=== PATIENT | female | born 1970 | race Caucasian/White ===

== ENCOUNTER 2018-02-27 21:23 | Emergency (ER) | payer OTHER ==
[2018-02-27] MEDS ORDERED: MAG HYDROX/AL HYDROX/SIMETH 30 ML UNIT-DOSE CUP PO ONE (21:39)
[2018-02-27] MEDS ORDERED: LIDOCAINE VISCOUS 2% ORAL/TOP 20 ML UNIT-DOSE CUP MM ONE (21:39)
--- NOTE | 2018-02-27 21:40 | PDOC ---
Rapid Medical Evaluation Chief Complaint: Pain Time Seen by Provider: 02/27/18 21:36 Medical Evaluation: Allergies Allergy/AdvReac Type Severity Reaction Status Date / Time No Known Allergies Allergy Verified 02/08/16 17:46 02/27/18 21:37 47 year old diagnosed with gastritis on protonix s/p burning sensation up the abdomen to chest pain. CTAP done today outpatient today. Dr. Cooley today PE: patient alert ox 3 A: gastritis? P: maalox/ lidocaine patient to the Er for further management of care Discharge Disposition - Diagnosis Gastritis Qualifiers: Gastritis type: unspecified gastritis Chronicity: acute Gastritis bleeding: without bleeding Qualified Code(s): K29.00 - Acute gastritis without bleeding - Referrals Referrals: Hortencia Lees MD [Primary Care Provider] - - Patient Instructions - Post Discharge Activity
[2018-02-27 21:43] VITALS: TEMP 98.1; BMI 30.2
--- NOTE | 2018-02-27 22:50 | PDOC ---
History of Present Illness - General Chief Complaint: Pain Stated Complaint: ABD PAIN Time Seen by Provider: 02/27/18 21:36 History Source: Patient Exam Limitations: No Limitations - History of Present Illness Initial Comments: 02/27/18 22:46 Pt is a 47yo f with PMH of HTN, GERD, mild gastritis, IBS presenting to ED with complaints of epigastric burning sensation which has been going on for 2 days. She denies epigastric pain. She feels the burning sensation in the epigastrium and in the back. She had similar symptoms a few weeks ago but they had resolved. She had an endoscopy done 2 weeks ago which showed mild gastritis. CT was done today which showed no acute pathology, fatty liver and left renal cyst , normal appendix, mild splenomegaly. She denies taking nsaids, iron pills, coffee, fried foods, sodas. She denies nausea, vomiting, abdominal pain, diarrhea, constipation, blood in stool, tarry stools (she said her stools were dark before from the iron pills). PMD: [facility] GI: Lantin PMH: see hpi PSH: cholecystectomy Meds: protonix, losartan hctz Social: denies Allergies: nkda 02/27/18 22:51 Past History - Past Medical History Allergies/Adverse Reactions: Allergies Allergy/AdvReac Type Severity Reaction Status Date / Time No Known Allergies Allergy Verified 02/27/18 21:38 Home Medications: Ambulatory Orders Losartan-Hctz 50-12.5 mg Tab 50 PO DAILY 02/27/18 Pantoprazole Sodium 40 mg PO BID 02/27/18 COPD: No GI Disorders: Yes (IBS,GERD) HTN: Yes - Surgical History Cholecystectomy: Yes - Suicide/Smoking/Psychosocial Hx Smoking Status: Yes Smoking History: Never smoked Have you smoked in the past 12 months: No Number of Cigarettes Smoked Daily: 0 Hx Alcohol Use: No Drug/Substance Use Hx: No Substance Use Type: None Review of Systems - Review of Systems Constitutional: No: Symptoms Reported HEENTM: No: Symptoms Reported Respiratory: No: Cough, Shortness of Breath, Hemoptysis Cardiac (ROS): Yes: Other (burning sensation substernally). No: Chest Pain, Lightheadedness, Palpitations ABD/GI: Yes: Other (epigastric burning radiating to back). No: Constipated, Diarrhea, Nausea, Vomiting, Abdominal cramping : No: Burning, Dysuria, Frequency, Flank Pain, Hematuria, Incontinence Musculoskeletal: Yes: Back Pain (burning sensation). No: Joint Pain, Muscle Pain, Muscle Weakness, Neck Pain Integumentary: No: Symptoms Reported Neurological: No: Symptoms reported *Physical Exam - Vital Signs Last Vital Signs Temp Pulse Resp BP Pulse Ox 98.1 F 88 18 116/68 98 02/27/18 21:35 02/27/18 21:35 02/27/18 21:35 02/27/18 21:35 02/27/18 21:35 - Physical Exam General Appearance: Yes: Nourished, Appropriately Dressed. No: Apparent Distress HEENT: positive: EOMI, LAVERN, Normal ENT Inspection Neck: positive: Trachea midline, Supple. negative: Lymphadenopathy (R), Lymphadenopathy (L) Respiratory/Chest: positive: Lungs Clear, Normal Breath Sounds. negative: Crackles, Rales, Rhonchi, Stridor, Wheezing Cardiovascular: positive: Regular Rhythm, Regular Rate, S1, S2. negative: Edema , JVD, Murmur Vascular Pulses: Carotid (R): 2+, Carotid (L): 2+, Dorsalis-Pedis (R): 2+, Doralis-Pedis (L): 2+ Gastrointestinal/Abdominal: positive: Normal Bowel Sounds, Soft. negative: Distended, Guarding, Rebound, Tenderness Musculoskeletal: negative: CVA Tenderness Extremity: positive: Normal Capillary Refill Integumentary: positive: Normal Color, Dry, Warm Neurologic: positive: mutuel clerk II-XII NML intact, Fully Oriented, Alert, Normal Mood/ Affect, Normal Response, Motor Strength 5/5 Medical Decision Making - Medical Decision Making Pt is a 47yo f with PMH of HTN, GERD, mild gastritis, IBS presenting to ED with complaints of epigastric burning sensation which has been going on for 2 days. Vitals: wnl PE: benign, no epigastric tenderness. Ddx; pancreatitis, gerd, pud, aaa, acs, pna, pe -low suspicion for pe given normal vital signs, no chest pain. same reasoning for acs. no signs of infection. had cholecystectomy Viscous lidocaine, Maalox ordered by [facility]. Bentyl added. CT done earlier today did not show acute pathology. splenomegaly with hypodensity, L renal cyst and fatty liver found. No need for labs at this time. 02/27/18 23:51 Pt reports feeling better. Will be dc home. Has good follow up 02/28/18 07:28 *DC/Admit/Observation/Transfer Diagnosis at time of Disposition: Gastritis Qualifiers: Gastritis type: unspecified gastritis Chronicity: acute Gastritis bleeding: without bleeding Qualified Code(s): K29.00 - Acute gastritis without bleeding - Discharge Dispostion Disposition: HOME Condition at time of disposition: Improved - Referrals Referrals: Hortencia Lees MD [Primary Care Provider] - Carlos Alberto Cooley MD [Staff Physician] - - Patient Instructions Printed Discharge Instructions: DI for Gastritis Additional Instructions: You were seen here today for burning sensation in your stomach. Your CT scan was normal. You can take Maalox over the counter to help with your symptoms. I recommend making an appointment with Dr. Lees and Dr. Cooley for further management and evaluation of your symptoms. Stay away from fried foods, sodas, coffee, spicy food and acidic foods. Do not take NSAIDS (ibuprofen, naproxen, Aleeve, Advil) come back to the emergency room if: you develop pain, there is blood in your stool, you have black stools, you have blood in the vomit, or if any new concerning symptom develops. Thank you - Post Discharge Activity
--- NOTE | 2018-02-27 22:57 | PDOC ---
Attending Attestation - HPI HPI: 02/27/18 23:34 The patient is a 47-year-old female with past medical history significant for HTN, GERD, gastritis, IBS presents to the emergency department with epigastric burning for the past 2 days. The patient presents with epigastric burning, denies having abdominal pain. The patient reports similar symptoms few weeks prior, followed up with GI, where she had an Endoscopy done that was remarkable for mild gastritis. The patient reports since then shes been fine, till 2 days prior when the symptoms flared up. The patient had a CT done today, that was significant for fatty liver, L. renal cyst, and mild splenomegaly. Denies fever , chills, chest pain, SOB, melena, hematochezia, cough, nausea, vomiting. Allergies: NKA PCP: Dr. Lees. - Medical Decision Making 02/27/18 23:34 Documentation prepared by Joselin Mayes, acting as medical research associate for Lourdes Phelps MD. <Joselin Mayes - Last Filed: 02/27/18 23:34> - Resident Resident Name: Betty Alexandre - ED Attending Attestation I have performed the following: I have examined & evaluated the patient, The case was reviewed & discussed with the resident, I agree w/resident's findings & plan - Physicial Exam PE: 02/28/18 00:03 Agree with resident exam - Medical Decision Making 02/28/18 00:03 Exam normal; pt is feeling better and she will be discharged home. <Lourdes Phelps - Last Filed: 02/28/18 00:06> Heart Score/ECG Review - ECG Intrepretation Rhythm: Regular Rhythm - [place]: Normal - P and MS Prominent R with upright T in V1 (true posterior OK): No Delta Wave(s) Present: No WPW: No - ST and T Early Repolarization: No Non Specific ST-T Wave changes: No - ECG Impressions Normal ECG: Yes Non-specific ST Elevation: No Ischemic Changes: No Bradycardia: No Torsades eric Pointes: No WPW: No <Lourdes Phelps - Last Filed: 02/28/18 00:06>
[2018-02-27] MEDS ORDERED: DICYCLOMINE HCL 20 MG TABLET PO ONE (22:58)
[2018-02-27] MEDS ORDERED: LIDOCAINE HCL 2% (20ML MULTI-DOSE VIAL) NR ONE (23:06)
[2018-02-27] MEDS ORDERED: MAG HYDROX/AL HYDROX/SIMETH 30 ML UNIT-DOSE CUP ONE (23:06)
[2018-02-27] MEDS ORDERED: DICYCLOMINE HCL 10 MG CAPSULE ONE (23:06)
[2018-02-27] MEDS ORDERED: LIDOCAINE VISCOUS 2% ORAL/TOP 20 ML UNIT-DOSE CUP ONE (23:09)
[2018-02-28 00:13] VITALS: BP 119/55; PULSE 82
--- NOTE | 2018-03-04 15:43 | EKG ---
Test Reason : Blood Pressure : / mmHG Vent. Rate : 075 BPM Atrial Rate : 075 BPM P-R Int : 156 ms QRS Dur : 086 ms QT Int : 390 ms P-R-T Axes : 040 -10 022 degrees QTc Int : 435 ms NORMAL SINUS RHYTHM NORMAL ECG WHEN COMPARED WITH ECG OF 05-MAR-2014 18:54, NO SIGNIFICANT CHANGE WAS FOUND Confirmed by SUKUMAR FAYE MD ([id number]) on 03/04/2018 3:42:59 PM Referred By: Confirmed By:SUKUMAR FAYE MD
== END 2018-02-28 00:15 | disposition home or self-care (01) ==
LOC: JER 21:23
DX: K29.00 Acute gastritis without bleeding (principal); K21.9 Gastro-esophageal reflux disease without esophagitis; I10 Essential (primary) hypertension; Z87.19 Personal history of other diseases of the digestive system
CPT/HCPCS: 93005; 93010; 99282-25

== ENCOUNTER 2018-03-21 10:17 | Emergency (ER) | payer OTHER ==
[2018-03-21 10:36] VITALS: BP 138/87; PULSE 87; TEMP 98.5; BMI 29.8
--- NOTE | 2018-03-21 11:30 | PDOC ---
History of Present Illness - General Chief Complaint: Pain, Acute Stated Complaint: UNDER ARM PIT PAIN Time Seen by Provider: 03/21/18 11:01 History Source: Patient Exam Limitations: No Limitations - History of Present Illness Initial Comments: 03/21/18 11:33 Patient here with complaints of right breast and upper chest wall pain. has had intermittent twinges of pain once last month 2 days before her period that resolved spontaneously. And then recurred this week. Patient had the [facility] appointment with a thorough breast exam in January that was negative. was seen by her [facility] on who evaluated her breast and did ultrasound which was negative. Also had mammogram last week which was reportedly negative for any pathology. Patient denies fever, denies any exercise changes or trauma. Has had a breast reduction 8 years ago without complication Timing/Duration: 24 hours, intermittent Severity: mild Associated Symptoms: reports: malaise. denies: fever/chills, headaches Past History - Travel Traveled outside of the country in the last 30 days: No Close contact w/someone who was outside of country & ill: No - Past Medical History Allergies/Adverse Reactions: Allergies Allergy/AdvReac Type Severity Reaction Status Date / Time No Known Allergies Allergy Verified 03/21/18 10:30 Home Medications: Ambulatory Orders Losartan-Hctz 50-12.5 mg Tab 50 mg PO DAILY 02/27/18 Pantoprazole Sodium 40 mg PO BID 02/27/18 Acetaminophen 1,000 mg PO Q6H PRN #30 tablet 03/21/18 COPD: No GI Disorders: Yes (IBS) - Surgical History Cholecystectomy: Yes - Immunization History Immunization Up to Date: Yes - Suicide/Smoking/Psychosocial Hx Smoking Status: Yes Smoking History: Never smoked Have you smoked in the past 12 months: No Number of Cigarettes Smoked Daily: 0 Hx Alcohol Use: No Drug/Substance Use Hx: No Substance Use Type: None Review of Systems - Review of Systems Able to Perform ROS?: Yes Is the patient limited Danish proficient: Yes Constitutional: Yes: Symptoms Reported, See HPI, Loss of Appetite, Malaise HEENTM: Yes: See HPI. No: Symptoms Reported Respiratory: Yes: See HPI. No: Symptoms reported, Cough, Wheezing ABD/GI: Yes: Symptoms Reported, See HPI, Nausea : Yes: Symptoms Reported Integumentary: Yes: See HPI. No: Symptoms Reported, Bruising, Erythema, Lesions , Lumps Neurological: No: Symptoms reported All Other Systems: Reviewed and Negative *Physical Exam - Vital Signs Last Vital Signs Temp Pulse Resp BP Pulse Ox 98.5 F 87 16 138/87 98 03/21/18 10:31 03/21/18 10:31 03/21/18 10:31 03/21/18 10:31 03/21/18 10:31 - Physical Exam General Appearance: Yes: Nourished, Appropriately Dressed. No: Apparent Distress HEENT: positive: LAVERN, Normal ENT Inspection, TMs Normal, Pharynx Normal Neck: positive: Supple. negative: Tender Respiratory/Chest: positive: Lungs Clear, Other (Bilateral breast exam reveals symmetrical breasts, with well-healed scars from reduction surgery 2011. No skin changes, no masses noted. Exam of both breasts have no lymphadenopathy, no reproduced tenderness, no nipple discharge. Area where patient points to tenderness is primarily axillary and superficial. There are no masses, lesions, abscesses or skin changes noted.) Gastrointestinal/Abdominal: positive: Soft. negative: Tender Integumentary: positive: Dry, Warm, Pale Neurologic: positive: bow maker gift wrapping II-XII NML intact, Fully Oriented, Alert, Normal Mood/ Affect, Normal Response, Motor Strength 5/5 Moderate Sedation - Procedure Monitoring Vital Signs: Procedure Monitoring Vital Signs Temperature 98.5 F 03/21/18 10:31 Pulse Rate 87 03/21/18 10:31 Respiratory Rate 16 03/21/18 10:31 Blood Pressure 138/87 03/21/18 10:31 O2 Sat by Pulse Oximetry (%) 98 03/21/18 10:31 Medical Decision Making - Medical Decision Making 03/21/18 12:06 normal breast, with History of normal mammogram, normal ultrasound from [facility] office with thorough exam this past week and normal exam today, patient updated and reinforced healthy evaluation. We'll recommend Motrin, changing of razor for shaving axilla hair, Leonid follow-up with [facility] if pain persists. *DC/Admit/Observation/Transfer Diagnosis at time of Disposition: Breast tenderness in female - Discharge Dispostion Disposition: HOME Condition at time of disposition: Stable Decision to Admit order: No - Prescriptions Prescriptions: Acetaminophen 1,000 mg PO Q6H PRN #30 tablet PRN Reason: Pain - Referrals Referrals: Hortencia Lees MD [Primary Care Provider] - - Patient Instructions Printed Discharge Instructions: DI for Breast Pain (Mastalgia) Additional Instructions: Rest, ice to area on and off for 15 minutes 4-6 times a day, May use hot soaks if ice packs do not help Avoid heavy lifting or exercise until pain and swelling is resolved or until further directed Followup with PMD in one to 2 days if not improving, if significantly improved may wait one week for followup with Physician May use Tylenol 2-500 mg tablets every 6 hours as needed for pain - Post Discharge Activity Forms/Work/School Notes: Back to Work
[2018-03-21] MEDS ORDERED: ACETAMINOPHEN 500 MG TABLET (FP) ONE (11:38)
[2018-03-21] MEDS ORDERED: ACETAMINOPHEN 500 MG TABLET (FP) PO ONE (11:40)
== END 2018-03-21 11:44 | disposition home or self-care (01) ==
LOC: JERFT 10:17
DX: N64.4 Mastodynia (principal)
CPT/HCPCS: 99281-25

== ENCOUNTER 2018-05-10 18:02 | Emergency (ER) | payer OTHER ==
[2018-05-10 18:16] VITALS: BP 125/74; PULSE 86; TEMP 97.8; BMI 30.2
--- NOTE | 2018-05-10 18:31 | PDOC ---
History of Present Illness - General Chief Complaint: Pain, Acute Stated Complaint: Back pain Time Seen by Provider: 05/10/18 18:14 History Source: Patient - History of Present Illness Pain Location: reports: back Past History - Past Medical History Allergies/Adverse Reactions: Allergies Allergy/AdvReac Type Severity Reaction Status Date / Time No Known Allergies Allergy Verified 03/21/18 10:30 Home Medications: Ambulatory Orders Losartan-Hctz 50-12.5 mg Tab 50 mg PO DAILY 02/27/18 Pantoprazole Sodium 40 mg PO BID 02/27/18 Acetaminophen 1,000 mg PO Q6H PRN #30 tablet 03/21/18 COPD: No GI Disorders: Yes (IBS, gerd) HTN: Yes - Surgical History Cholecystectomy: Yes - Immunization History Immunization Up to Date: Yes - Suicide/Smoking/Psychosocial Hx Smoking Status: Yes Smoking History: Never smoked Have you smoked in the past 12 months: No Number of Cigarettes Smoked Daily: 0 Information on smoking cessation initiated: No Hx Alcohol Use: No Drug/Substance Use Hx: No Substance Use Type: None Review of Systems - Review of Systems Constitutional: No: Chills, Fever Respiratory: No: Cough, Shortness of Breath Cardiac (ROS): No: Chest Pain, Palpitations Musculoskeletal: Yes: Back Pain *Physical Exam - Vital Signs Last Vital Signs Temp Pulse Resp BP Pulse Ox 97.8 F 86 16 125/74 100 05/10/18 18:12 05/10/18 18:12 05/10/18 18:12 05/10/18 18:12 05/10/18 18:12 - Physical Exam General Appearance: Yes: Appropriately Dressed. No: Apparent Distress HEENT: positive: Normal Voice Neck: positive: Supple Respiratory/Chest: positive: Lungs Clear, Normal Breath Sounds. negative: Respiratory Distress Cardiovascular: positive: Regular Rate, S1, S2 Musculoskeletal: positive: Normal Inspection, Vertebral Tenderness (to R thoracic back, no skin changes) Integumentary: positive: Dry, Warm Neurologic: positive: Fully Oriented, Alert, Normal Mood/Affect Moderate Sedation - Procedure Monitoring Vital Signs: Procedure Monitoring Vital Signs Temperature 97.8 F 05/10/18 18:12 Pulse Rate 86 05/10/18 18:12 Respiratory Rate 16 05/10/18 18:12 Blood Pressure 125/74 05/10/18 18:12 O2 Sat by Pulse Oximetry (%) 100 05/10/18 18:12 Medical Decision Making - Medical Decision Making 05/10/18 18:28 47-year-old female, history of GERD, IBS, here with R mid back pain 4 days, achy, 5-6/10, intermittent and worse only w/ palpation. Has not taken anything for pain. Denies any trauma or obvious inciting factors. Elver CP, SOB or palpitations. Pt well-appearing and stable with reproducible pain to right mid back, exam otherwise unremarkable. DC with [id number] pain control as needed for possible MSK pain. To f/u with PMD *DC/Admit/Observation/Transfer Diagnosis at time of Disposition: Thoracic back pain Qualifiers: Chronicity: unspecified Back pain laterality: right Qualified Code(s): M54.6 - Pain in thoracic spine - Discharge Dispostion Disposition: HOME Condition at time of disposition: Good - Referrals Referrals: Hortencia Lees MD [Primary Care Provider] - - Patient Instructions Printed Discharge Instructions: Thoracic Back Pain Additional Instructions: The cause of your back pain is possibly muscular. Take Motrin or Tylenol for pain. If symptoms persist. Please discuss with your PMD - Post Discharge Activity
== END 2018-05-10 18:31 | disposition home or self-care (01) ==
LOC: JERFT 18:02
DX: M54.6 Pain in thoracic spine (principal); I10 Essential (primary) hypertension; K21.9 Gastro-esophageal reflux disease without esophagitis; K58.9 Irritable bowel syndrome, unspecified
CPT/HCPCS: 99281-25

== ENCOUNTER 2018-06-04 08:41 | Emergency (ER) | payer OTHER ==
[2018-06-04 08:49] VITALS: BP 145/90; PULSE 80; TEMP 97.9; BMI 29.8
[2018-06-04 09:00] LABS: PH,URINE 5.5 (5.0-8.0); URINE APPEARANCE Clear; URINE BILIRUBIN Negative (<2.0 mg/dL); URINE COLOR Yellow; URINE GLUCOSE (UA) Negative (NEGATIVE); URINE KETONE Negative (NEGATIVE); URINE LEUK ESTERASE Negative (NEGATIVE); URINE NITRITE Negative (NEGATIVE); URINE PROTEIN Trace (NEGATIVE); URINE UROBILINOGEN 0.2 mg/dL (0.2-1.0)
[2018-06-04 09:06] LABS: HCG,QUALITATIVE URINE Negative
--- NOTE | 2018-06-04 09:08 | PDOC ---
History of Present Illness - General Chief Complaint: Pain, Acute Stated Complaint: PELVIS PAIN/ LOWER BACK PAIN Time Seen by Provider: 06/04/18 09:05 History Source: Patient Exam Limitations: No Limitations - History of Present Illness Initial Comments: 06/04/18 09:07 Patient is a 47-year-old female with PMH of GERD, IBS, uterine fibriods, who presents to the ER for lower abdominal pain. Patient is finishing her menstrual cycle currently. She states she has lower abdominal cramps, radiating to the back and that her symptoms started a few days prior to her period. She states that the cramps have lasted longer than they usually do. Pt also admits to bloating and constipation. Pt has not taken any medications for her symptoms. Denies fevers, chills, nausea, vomiting, frequency, urgency, hematuria. Past History - Travel Traveled outside of the country in the last 30 days: No Close contact w/someone who was outside of country & ill: No - Past Medical History Allergies/Adverse Reactions: Allergies Allergy/AdvReac Type Severity Reaction Status Date / Time No Known Allergies Allergy Verified 06/04/18 08:43 Home Medications: Ambulatory Orders Pantoprazole Sodium 40 mg PO BID 02/27/18 COPD: No GI Disorders: Yes (IBS, gerd) HTN: Yes - Surgical History Cholecystectomy: Yes - Immunization History Immunization Up to Date: Yes - Suicide/Smoking/Psychosocial Hx Smoking Status: Yes Smoking History: Never smoked Have you smoked in the past 12 months: No Number of Cigarettes Smoked Daily: 0 Hx Alcohol Use: No Drug/Substance Use Hx: No Substance Use Type: None Review of Systems - Review of Systems Able to Perform ROS?: Yes Comments:: 06/04/18 09:06 CONSTITUTIONAL: Absent: fever, chills, diaphoresis, generalized weakness, malaise, loss of appetite HEENT: Absent: rhinorrhea, nasal congestion, throat pain, throat swelling, difficulty swallowing, mouth swelling, ear pain, eye pain, visual Changes CARDIOVASCULAR: Absent: chest pain, loss of consciousness, palpitations, irregular heart rate, peripheral edema RESPIRATORY: Absent: cough, shortness of breath, dyspnea with exertion, orthopnea, wheezing, stridor, hemoptysis GASTROINTESTINAL: Present: lower abdominal pain, flatulence, constipation Absent: abdominal distension, nausea, vomiting, diarrhea, melena, hematochezia GENITOURINARY: Absent: dysuria, frequency, urgency, hesitancy, hematuria, flank pain, genital pain MUSCULOSKELETAL: Absent: myalgia, arthralgia, joint swelling SKIN: Absent: rash, itching, pallor HEMATOLOGIC/IMMUNOLOGIC: Absent: easy bleeding, easy bruising, lymphadenopathy, frequent infections ENDOCRINE: Absent: unexplained weight gain, unexplained weight loss, heat intolerance, cold intolerance NEUROLOGIC: Absent: headache, focal weakness or paresthesias, dizziness, unsteady gait, seizure, mental status changes, bladder or bowel incontinence PSYCHIATRIC: Absent: anxiety, depression, suicidal or homicidal ideation, hallucinations. Is the patient limited [place]ese proficient: No *Physical Exam - Vital Signs Last Vital Signs Temp Pulse Resp BP Pulse Ox 97.9 F 80 18 145/90 98 06/04/18 08:46 06/04/18 08:46 06/04/18 08:46 06/04/18 08:46 06/04/18 08:46 - Physical Exam Comments: 06/04/18 09:07 GENERAL: Well developed, well nourished. Awake and alert. No acute distress. HEENT: Normocephalic, atraumatic. PERRLA, EOMI. No conjunctival pallor. Sclera are non- icteric. Moist mucous membranes. Oropharynx is clear. NECK: Supple. Full ROM. No JVD. Carotid pulses 2+ and symmetric, without bruits. No thyromegaly. No lymphadenopathy. CARDIOVASCULAR: Regular rate and rhythm. No murmurs, rubs, or gallops. Distal pulses are 2+ and symmetric. PULMONARY: No evidence of respiratory distress. Lungs clear to auscultation bilaterally. No wheezing, rales or rhonchi. ABDOMINAL: Soft. TTP of the L and R adenexal region/RLQ. Non-distended. No rebound or guarding. No organomegaly. Normoactive bowel sounds. MUSCULOSKELETAL Normal range of motion at all joints. No bony deformities or tenderness. No CVA tenderness. EXTREMITIES: No cyanosis. No clubbing. No edema. No calf tenderness. SKIN: Warm and dry. Normal capillary refill. No rashes. No jaundice. NEUROLOGICAL: Alert, awake, appropriate. Cranial nerves 2-12 intact. No deficits to light touch and temperature in face, upper extremities and lower extremities. No motor deficits in the in face, upper extremities and lower extremities. Normoreflexic in the upper and lower extremities. Normal speech. Toes are down- going bilaterally. Gait is normal without ataxia. PSYCHIATRIC: Cooperative. Good eye contact. Appropriate mood and affect. Moderate Sedation - Procedure Monitoring Vital Signs: Procedure Monitoring Vital Signs Temperature 97.9 F 06/04/18 08:46 Pulse Rate 80 06/04/18 08:46 Respiratory Rate 18 06/04/18 08:46 Blood Pressure 145/90 06/04/18 08:46 O2 Sat by Pulse Oximetry (%) 98 06/04/18 08:46 ED Treatment Course - LABORATORY CBC & Chemistry Diagram: 06/04/18 10:00 06/04/18 10:00 - ADDITIONAL ORDERS Additional order review: Laboratory Results 06/04/18 08:45 Urine Color Yellow Urine Appearance Clear Urine pH 5.5 Ur Specific [place] 1.020 Urine Protein Trace Urine Glucose (UA) Negative Urine Ketones Negative Urine Blood 3+ H Urine Nitrite Negative Urine Bilirubin Negative Urine Urobilinogen 0.2 Ur Leukocyte Esterase Negative Medical Decision Making - Medical Decision Making 06/04/18 09:58 Pt currently eating a merlos egg and cheese in the vertical area. Pt presents with 4 days of bloating, cramping and bilateral lower quadrant pain -TVUS obtained, b/l simple cysts -Lab work reviewed, no gross abnormalities -Recommend motrin and f/u with DISEASE CASE MANAGER -Pt also plans to follow with GI for her bloating and suspected IBS -DC home -I discussed the physical exam findings, ancillary test results and final diagnoses with the patient. I answered all of the patient's questions. The patient was satisfied with the care received and felt comfortable with the discharge plan and treatment plan. The Patient agrees to follow up with the primary care physician/specialist within 24-72 hours. Return precautions were given. *DC/Admit/Observation/Transfer Diagnosis at time of Disposition: Ovarian cyst Qualifiers: Laterality: bilateral Qualified Code(s): N83.201 - Unspecified ovarian cyst, right side IBS (irritable bowel syndrome) Qualifiers: Irritable bowel syndrome type: with constipation Qualified Code(s): K58.1 - Irritable bowel syndrome with constipation - Discharge Dispostion Disposition: HOME Condition at time of disposition: Stable Decision to Admit order: No - Referrals Referrals: Hortencia Lees MD [Primary Care Provider] - Carlos Alberto Cooley MD [Staff Physician] - Rodolfo Negro MD [Staff Physician] - - Patient Instructions Printed Discharge Instructions: DI for Ovarian Cyst Additional Instructions: Your pain today is most likely a combination of IBS and your ovarian cysts. Please take Tylenol 650 mg every 6 hours as needed for pain. Warm compresses to the abdomen may help. Please follow up with both Dr. Carrasquillo and Dr. Novak Return to the ER for any new or worsening symptoms including worsening abdominal pain, nausea and vomiting, lightheadedness, or if you have any changes in her symptoms. - Post Discharge Activity Forms/Work/School Notes: Back to Work
[2018-06-04 09:42] LABS: EPI CELLS 2+ /HPF (FEW); URINE BACTERIA 1+ /hpf (NONE SEEN)
[2018-06-04 10:08] LABS: BASO % 1.3 % (0-2.0); EOS % 3.7 % (0-4.5); HEMATOCRIT 39.6 % (32.4-45.2); HEMOGLOBIN 13.7 GM/dL (10.7-15.3); MCH 29.7 pg (25.7-33.7); MCHC 34.5 g/dl (32.0-36.0); MEAN PLT VOLUME 9.4 fl (7.5-11.1); MONO % 5.9 % (3.8-10.2); NEUT % 66.1 % (42.8-82.8); PLATELET COUNT 257 K/MM3 (134-434); RBC 4.61 M/mm3 (3.60-5.2); RDW 13.3 % (11.6-15.6); WHITE BLOOD COUNT 6.6 K/mm3 (4.0-10.0)
[2018-06-04 11:18] LABS: ALBUMIN 3.9 g/dl (3.4-5.0); ALK PHOS 64 U/L (45-117); ANION GAP 9 MMOL/L (8-16); BILIRUBIN,TOTAL 0.5 mg/dL (0.2-1); BLOOD UREA NITROGEN 18 mg/dL (7-18); CALCIUM 9.2 mg/dL (8.5-10.1); CHLORIDE 104 mmol/L (98-107); CO2 25 mmol/L (21-32); CREATININE 0.6 mg/dL (0.55-1.3); GLUCOSE,RANDOM 85 mg/dL (74-106); SGOT/AST 15 U/L (15-37); SGPT/ALT 19 U/L (13-61); SODIUM 138 mmol/L (136-145); TOT PROT 7.7 g/dl (6.4-8.2)
[2018-06-04] MEDS ORDERED: KETOROLAC TROMETHAMINE 15 MG/ML VIAL IVPUSH ONE (12:09)
[2018-06-04] MEDS ORDERED: KETOROLAC TROMETHAMINE 15 MG/ML VIAL ONE (12:24)
== END 2018-06-04 12:29 | disposition home or self-care (01) ==
LOC: JER 08:41
PROC: 3E0333Z Introduction of Anti-inflammatory into Peripheral Vein, Percutaneous Approach (ICD-10-PCS; principal; 2018-06-04)
DX: N83.201 Unspecified ovarian cyst, right side (principal); N83.202 Unspecified ovarian cyst, left side; I10 Essential (primary) hypertension; Z87.19 Personal history of other diseases of the digestive system; Z86.2 Personal history of diseases of the blood and blood-forming organs and certain disorders involving the immune mechanism
CPT/HCPCS: 36415; 76830-TC; 80053; 81003; 81015; 84703; 85025; 99282-25

== ENCOUNTER 2018-07-07 18:14 | Emergency (ER) | payer OTHER ==
[2018-07-07 18:25] VITALS: BP 124/70; PULSE 84; BMI 31.6
--- NOTE | 2018-07-07 19:34 | PDOC ---
History of Present Illness - General Chief Complaint: Pain Stated Complaint: BACK PAIN/LT PELVIC PAIN/NAUSEA Time Seen by Provider: 07/07/18 19:10 - History of Present Illness Initial Comments: 07/07/18 19:23 47-year-old female presents for evaluation of lower back pain with anterior lateral left leg radicular symptoms without loss of bowel or bladder function no systemic symptoms. Past History - Past Medical History Allergies/Adverse Reactions: Allergies Allergy/AdvReac Type Severity Reaction Status Date / Time No Known Allergies Allergy Verified 07/07/18 18:21 Home Medications: Ambulatory Orders Pantoprazole Sodium 40 mg PO BID 02/27/18 Cyclobenzaprine HCl [Flexeril 10 mg] 10 mg PO HS PRN #10 tablet 07/07/18 Methylprednisolone [Medrol Dose Tom] 4 mg PO ASDIR #21 tablet 07/07/18 COPD: No GI Disorders: Yes (IBS, gerd) HTN: Yes - Surgical History Cholecystectomy: Yes - Immunization History Immunization Up to Date: Yes - Suicide/Smoking/Psychosocial Hx Smoking Status: Yes Smoking History: Never smoked Have you smoked in the past 12 months: No Number of Cigarettes Smoked Daily: 0 Hx Alcohol Use: No Drug/Substance Use Hx: No Substance Use Type: None Review of Systems - Review of Systems Musculoskeletal: Yes: Back Pain *Physical Exam - Vital Signs Last Vital Signs Temp Pulse Resp BP Pulse Ox 84 20 124/70 98 07/07/18 18:21 07/07/18 18:21 07/07/18 18:21 07/07/18 18:21 - Physical Exam Comments: 07/07/18 19:23 Lumbar spine range of motion is slightly decreased. There is no midline tenderness mild left-sided paralumbar musculature spasm and tenderness. 5 out of 5 strength bilateral lower extremities without gross sensorimotor deficits negative straight leg raise test bilaterally. Medical Decision Making - Medical Decision Making 07/07/18 19:24 This is most likely a femoral nerve radiculopathy as opposed to sciatica. Medrol Dosepak patient has a past medical history of hypertension and GERD I do not want to give her anti-inflammatories. I'll give her prescription for Flexeril have her follow-up with orthopedic spine. She does complain of mild pelvic pain I did push on her abdomen she is nontender she has a history of uterine cysts however her pain waxes and wanes at this point. She does not want to wait for ultrasound results I have deferred ordering an ultrasound. I will refer her back to SECURITY CHECKER as well. Follow-up with orthopedic spine surgery. *DC/Admit/Observation/Transfer Diagnosis at time of Disposition: Lumbar radiculopathy, Pelvic pain - Discharge Dispostion Disposition: HOME Condition at time of disposition: Stable Decision to Admit order: No - Referrals Referrals: Hortencia Lees MD [Primary Care Provider] - Rodolfo Negro MD [Staff Physician] - Doroteo Coronado MD [Staff Physician] - - Patient Instructions Printed Discharge Instructions: DI for Pelvic Pain, Sciatica, DI for Sciatica, DI for Back Pain With Sciatica Additional Instructions: Please take the Medrol Dosepak as directed start that tomorrow. The muscle relaxer he may start tonight its one tablet before bedtime. He may take Tylenol if you need additional pain medication. Return to the emergency room should symptoms worsen. 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 - Post Discharge Activity
== END 2018-07-07 19:40 | disposition home or self-care (01) ==
LOC: JERFT 18:14
DX: M54.16 Radiculopathy, lumbar region (principal); M62.830 Muscle spasm of back; R10.2 Pelvic and perineal pain
CPT/HCPCS: 99281-25

== ENCOUNTER 2018-07-12 09:37 | Emergency (ER) | payer OTHER ==
[2018-07-12 09:47] VITALS: BP 133/74; PULSE 87; TEMP 98.6; BMI 30.3
--- NOTE | 2018-07-12 10:30 | PDOC ---
History of Present Illness - General Chief Complaint: Urinary Problem Stated Complaint: URINARY PROBLEM Time Seen by Provider: 07/12/18 09:58 History Source: Patient Exam Limitations: No Limitations - History of Present Illness Initial Comments: 07/12/18 10:23 Patient return to emergency department after being seen on Friday and diagnosed with sciatic pain. Patient did not take medication that was prescribed as she felt was in a musculoskeletal issue. Was able to obtain an appointment with her PLATE PREPARER on Friday who was able to perform a thorough exam including an ultrasound. That reported result was persistent fibroids that have not changed in size, however patient reports cause intermittent pain primarily with onset of menses that radiates to her left hip. Patient states this pain does not feel the same as the fibroid pain and has been persistent for over the week. She reported that her PLATE PREPARER doctor did not find any significant result that would cause this kind of suprapubic with radiation to left hip pain. Patient denies exercise change, any recent trauma or injury. Works primarily administrative/ desk work. Reports this pain is suprapubic and spreads across lower abdomen/ pelvis with some pain to her left hip as well, some nausea is associated. States but Azo yesterday and has been using with minimal resolved of any of the symptoms. Denies pain or burning with urination but thought perhaps would be UTI with some of the symptoms. Denies fever, denies constipation, had normal bowel movement yesterday and this morning but suffers from IBS and has not had a flare this week but has regular problems due to stress in her life. Denies black tarriness or blood in bowel movements. Is not been sexually active for some weeks Timing/Duration: 1 week Severity: mild, moderate Associated Symptoms: reports: denies symptoms. denies: fever/chills Past History - Travel Traveled outside of the country in the last 30 days: No Close contact w/someone who was outside of country & ill: No - Past Medical History Allergies/Adverse Reactions: Allergies Allergy/AdvReac Type Severity Reaction Status Date / Time No Known Allergies Allergy Verified 07/12/18 09:47 Home Medications: Ambulatory Orders Cephalexin Monohydrate [Keflex -] 500 mg PO Q8H #21 capsule 07/12/18 COPD: No GI Disorders: Yes (IBS, gerd) HTN: Yes - Surgical History Cholecystectomy: Yes - Immunization History Immunization Up to Date: Yes - Suicide/Smoking/Psychosocial Hx Smoking Status: Yes Smoking History: Never smoked Have you smoked in the past 12 months: No Number of Cigarettes Smoked Daily: 0 Hx Alcohol Use: No Drug/Substance Use Hx: No Substance Use Type: None Review of Systems - Review of Systems Able to Perform ROS?: Yes Is the patient limited Citizen Of [place] proficient: Yes Constitutional: Yes: Symptoms Reported, See HPI, Malaise HEENTM: Yes: See HPI. No: Symptoms Reported Respiratory: Yes: See HPI. No: Symptoms reported, Cough : Yes: Symptoms Reported, See HPI, Dysuria (mild dysuria, pain is primarily suprapubic/pelvic), Frequency Integumentary: No: Symptoms Reported *Physical Exam - Vital Signs Last Vital Signs Temp Pulse Resp BP Pulse Ox 98.6 F 87 18 133/74 98 07/12/18 09:44 07/12/18 09:44 07/12/18 09:44 07/12/18 09:44 07/12/18 09:44 - Physical Exam General Appearance: Yes: Nourished, Appropriately Dressed, Apparent Distress, Mild Distress HEENT: positive: LAVERN, Normal ENT Inspection, Normal Voice, TMs Normal, Pharynx Normal Neck: positive: Supple. negative: Tender Respiratory/Chest: positive: Lungs Clear, Normal Breath Sounds Gastrointestinal/Abdominal: positive: Normal Bowel Sounds, Tender, Soft, Tenderness (suprapubic ). negative: Distended, Guarding, Rebound, Hepatomegaly , Spleenomegaly Musculoskeletal: positive: Normal Inspection, CVA Tenderness Extremity: positive: Normal Capillary Refill, Normal Inspection, Normal Range of Motion Integumentary: positive: Dry, Warm, Pale Neurologic: positive: phone counselor II-XII NML intact, Fully Oriented, Alert, Normal Mood/ Affect, Normal Response, Motor Strength 5/5 Medical Decision Making - Medical Decision Making 07/12/18 11:38 urinalysis reveals an early urinary tract infection, will treat with Keflex, patient understands culture will be sent to ensure susceptibility. And also understands will need follow-up next week for recheck with hopes the pelvic pain. She's been experiencing is related to this infection. *DC/Admit/Observation/Transfer Diagnosis at time of Disposition: UTI (urinary tract infection) Qualifiers: Urinary tract infection type: acute cystitis Hematuria presence: without hematuria Qualified Code(s): N30.00 - Acute cystitis without hematuria - Discharge Dispostion Disposition: HOME Condition at time of disposition: Stable Decision to Admit order: No - Prescriptions Prescriptions: Cephalexin Monohydrate [Keflex -] 500 mg PO Q8H #21 capsule - Referrals Referrals: Hortencia Lees MD [Primary Care Provider] - - Patient Instructions Printed Discharge Instructions: DI for Urinary Tract Infection (UTI) Additional Instructions: Rest, drink lots of fluids: Teas, water, soups Avoid contact with others until fevers and symptoms resolved Lots of handwashing and good hygiene Continue [id number] medications for symptomatic relief Tylenol or Motrin for fever and pain Continue all of antibiotics until completed Followup with private physician in one week for repeat urinalysis/reevaluation Return to emergency department for worsened symptoms, fevers, dehydration - Post Discharge Activity Forms/Work/School Notes: Back to Work
[2018-07-12 10:51] LABS: HCG,QUALITATIVE URINE Negative
[2018-07-12 10:54] LABS: EPI CELLS 4.7 /HPF (0-5); PH,URINE 7.5 (5.0-8.0); URINE APPEARANCE CLEAR; URINE BACTERIA 61.5 /hpf (NEGATIVE); URINE BILIRUBIN 1+ (NEGATIVE); URINE CASTS 3 /hpf (0-8); URINE COLOR DK YELLOW; URINE GLUCOSE (UA) NEGATIVE (NEGATIVE); URINE KETONE NEGATIVE (NEGATIVE); URINE LEUK ESTERASE 1+ (NEGATIVE); URINE NITRITE POSITIVE (NEGATIVE); URINE PROTEIN NEGATIVE (NEGATIVE); URINE RBC 4 /hpf (0-4); URINE WBC 1 /hpf (0-5)
[2018-07-12] MEDS ORDERED: ACETAMINOPHEN 500 MG TABLET (FP) ONE (11:20)
== END 2018-07-12 11:41 | disposition home or self-care (01) ==
LOC: JERFT 09:37
DX: N30.00 Acute cystitis without hematuria (principal); I10 Essential (primary) hypertension; Z87.19 Personal history of other diseases of the digestive system
CPT/HCPCS: 81003; 84703; 87086; 99281-25

== ENCOUNTER 2020-05-05 04:45 | Day surgery (SDC) | payer BC ==
[2020-05-02 16:46] VITALS: BMI 29.0
[2020-05-05] MEDS ORDERED: MIDAZOLAM HCL 2 MG/2 ML SINGLE DOSE VIAL ONE (13:24)
[2020-05-05] MEDS ORDERED: PROPOFOL 20 ML ONE (13:24)
[2020-05-05] MEDS ORDERED: ceFAZolin SODIUM 1 GM VIAL ONE (13:39)
[2020-05-05] MEDS ORDERED: LIDOCAINE HCL/PF 2% SDV 5ML VIAL ONE (13:39)
[2020-05-05] MEDS ORDERED: LIDOCAINE HCL 2% JELLY (5 ML/TUBE) ONE (13:39)
[2020-05-05] MEDS ORDERED: KETOROLAC TROMETHAMINE 30 MG/1 ML VIAL ONE (13:39)
[2020-05-05] MEDS ORDERED: DEXAMETHASONE SOD PHOSPHATE 4 MG/1 ML VIAL ONE (13:39)
[2020-05-05] MEDS ORDERED: IBUPROFEN 600 MG TABLET (FP) PO PRN (14:10)
[2020-05-05] MEDS ORDERED: oxyCODONE HCL 5 MG TABLET PO PRN ×3 (14:10→14:19)
[2020-05-05] MEDS ORDERED: IBUPROFEN 800 MG/8 ML IJ IVPB PRN (14:10)
[2020-05-05] MEDS ORDERED: ONDANSETRON 4 MG/2 ML VIAL IVPUSH PRN ×2 (14:10→14:19)
[2020-05-05] MEDS ORDERED: ELECTROLYTE-148 SOLN 1,000 ML IV SCH (14:15)
[2020-05-05] MEDS ORDERED: PROMETHAZINE HCL 25 MG/1 ML VIAL IVPB PRN (14:19)
[2020-05-05 17:06] VITALS: BP 116/81; PULSE 84; TEMP 98.2
== END 2020-05-05 17:10 | disposition home or self-care (01) ==
LOC: JASU-SURG 04:45
PROVIDERS: ATTEND Obstetrics & Gynecology
PROC: 0UDB7ZX Extraction of Endometrium, Via Natural or Artificial Opening, Diagnostic (ICD-10-PCS; 2020-05-05)
PROC: 0UJD8ZZ Inspection of Uterus and Cervix, Via Natural or Artificial Opening Endoscopic (ICD-10-PCS; 2020-05-05)
PROC: 0UB98ZZ Excision of Uterus, Via Natural or Artificial Opening Endoscopic (ICD-10-PCS; principal; 2020-05-05 14:00)
PROC: 0UB97ZX Excision of Uterus, Via Natural or Artificial Opening, Diagnostic (ICD-10-PCS; 2020-05-05 14:00)
DX: N92.0 Excessive and frequent menstruation with regular cycle (principal); D25.0 Submucous leiomyoma of uterus; N84.0 Polyp of corpus uteri
CPT/HCPCS: 88305-TC; 93005; 93010; 94760

== ENCOUNTER 2020-11-01 18:19 | Emergency (ER) | payer BC ==
[2020-11-01 18:26] VITALS: TEMP 98.4; BMI 31.6
[2020-11-01] MEDS ORDERED: DICYCLOMINE HCL 10 MG/5 ML PO ONE (19:24)
[2020-11-01] MEDS ORDERED: LIDOCAINE VISCOUS 2% ORAL/TOP 20 ML UNIT-DOSE CUP MM ONE (19:24)
[2020-11-01] MEDS ORDERED: MAG HYDROX/AL HYDROX/SIMETH 30 ML UNIT-DOSE CUP PO ONE (19:24)
[2020-11-01] MEDS ORDERED: FAMOTIDINE 20 MG TABLET PO ONE ×2 (19:26→19:54)
[2020-11-01] MEDS ORDERED: FAMOTIDINE 20 MG TABLET ONE (20:41)
[2020-11-01] MEDS ORDERED: LIDOCAINE VISCOUS 2% ORAL/TOP 20 ML UNIT-DOSE CUP ONE (20:41)
[2020-11-01] MEDS ORDERED: MAG HYDROX/AL HYDROX/SIMETH 30 ML UNIT-DOSE CUP ONE (20:41)
[2020-11-01] MEDS ORDERED: DICYCLOMINE HCL 10 MG CAPSULE ONE (20:41)
[2020-11-01 23:21] VITALS: BP 119/75; PULSE 68
== END 2020-11-01 23:17 | disposition home or self-care (01) ==
LOC: JER 18:19
DX: R10.9 Unspecified abdominal pain (principal)
CPT/HCPCS: 74177-TC; 84703; 99285-25

== ENCOUNTER 2021-02-19 10:22 | Emergency (ER) | payer BC ==
[2021-02-19 10:31] VITALS: BP 148/88; PULSE 100; TEMP 98.3; BMI 29.9
[2021-02-19 11:20] LABS: URINE APPEARANCE CLEAR; URINE BILIRUBIN NEGATIVE (NEGATIVE); URINE COLOR DK YELLOW; URINE GLUCOSE (UA) NEGATIVE (NEGATIVE); URINE KETONE NEGATIVE (NEGATIVE); URINE LEUK ESTERASE NEGATIVE (NEGATIVE); URINE NITRITE NEGATIVE (NEGATIVE); URINE PROTEIN NEGATIVE (NEGATIVE); URINE UROBILINOGEN 0.2 mg/dL (0.2-1.0)
[2021-02-19 11:22] LABS: HCG,QUALITATIVE URINE Negative
== END 2021-02-19 15:33 | disposition home or self-care (01) ==
LOC: JERFT 10:22 → JER 10:22 → JERFT 15:33
DX: D25.1 Intramural leiomyoma of uterus (principal)
CPT/HCPCS: 36415; 76830-TC; 81003; 84703; 87070; 87077; 87086; 87205; 87491; 87591; 87661; 99284-25

== ENCOUNTER 2021-07-19 19:36 | Emergency (ER) | payer BC ==
[2021-07-19 19:42] VITALS: BP 146/84; PULSE 87; TEMP 98.1; BMI 29.9
[2021-07-19] MEDS ORDERED: ONDANSETRON 4 MG/2 ML VIAL IVPUSH ONE (20:47)
[2021-07-19] MEDS ORDERED: SODIUM CHLORIDE 1,000 ML IV STA (20:47)
[2021-07-19] MEDS ORDERED: morphine CARPU-JECT 4 MG/1 ML DISP.SYRIN IVPUSH ONE (20:47)
[2021-07-19] MEDS ORDERED: morphine SULFATE 4 MG/ML VIAL ONE (20:49)
[2021-07-19] MEDS ORDERED: ONDANSETRON 4 MG/2 ML VIAL ONE (20:49)
[2021-07-19 21:18] LABS: BASO % 1.1 % (0-2.0); EOS % 4.2 % (0-4.5); HEMATOCRIT 35.7 % (32.4-45.2); HEMOGLOBIN 11.5 GM/dL (10.7-15.3); MCH 23.9 pg (25.7-33.7); MCHC 32.1 g/dl (32.0-36.0); MEAN CELL VOLUME 74.4 fl (80-96); MEAN PLT VOLUME 9.1 fl (7.5-11.1); MONO % 6.3 % (3.8-10.2); NEUT % 62.4 % (42.8-82.8); PLATELET COUNT 285 10^3/uL (134-434); RDW 16.4 % (11.6-15.6); WHITE BLOOD COUNT 7.9 K/mm3 (4.0-10.0)
[2021-07-19 21:20] LABS: URINE APPEARANCE CLEAR; URINE BILIRUBIN NEGATIVE (NEGATIVE); URINE COLOR YELLOW; URINE GLUCOSE (UA) NEGATIVE (NEGATIVE); URINE KETONE NEGATIVE (NEGATIVE); URINE LEUK ESTERASE NEGATIVE (NEGATIVE); URINE NITRITE NEGATIVE (NEGATIVE); URINE PROTEIN NEGATIVE (NEGATIVE); URINE UROBILINOGEN 0.2 mg/dL (0.2-1.0)
[2021-07-19 21:23] LABS: HCG,QUALITATIVE URINE Negative
[2021-07-19 21:43] LABS: ALBUMIN 3.8 g/dl (3.4-5.0); BLOOD UREA NITROGEN 15.3 mg/dL (7-18); CALCIUM 8.9 mg/dL (8.5-10.1)
[2021-07-19 21:46] LABS: CREATININE 0.8 mg/dL (0.55-1.3)
[2021-07-19 21:48] LABS: BILIRUBIN,TOTAL 0.3 mg/dL (0.2-1); TOT PROT 7.5 g/dl (6.4-8.2)
== END 2021-07-20 00:52 | disposition home or self-care (01) ==
LOC: JER 19:36
PROC: 3E033NZ Introduction of Analgesics, Hypnotics, Sedatives into Peripheral Vein, Percutaneous Approach (ICD-10-PCS; principal; 2021-07-19)
PROC: 3E033GC Introduction of Other Therapeutic Substance into Peripheral Vein, Percutaneous Approach (ICD-10-PCS; 2021-07-19)
PROC: 3E033GC Introduction of Other Therapeutic Substance into Peripheral Vein, Percutaneous Approach (ICD-10-PCS; 2021-07-19)
DX: N20.0 Calculus of kidney (principal)
CPT/HCPCS: 36415; 74176-TC; 80053; 81003; 83690; 84703; 85025; 87077; 87086; 99284-25

== ENCOUNTER 2021-11-24 11:01 | Day surgery (SDC) | payer BC ==
[2021-11-24] MEDS ORDERED: FERRIC CARBOXYMALTOSE 750 MG in SODIUM CHLORIDE 250 ML IVPB SCH (11:30)
[2021-11-24 12:09] VITALS: BP 125/72; PULSE 81; RESP 18; TEMP 98.8
== END 2021-11-24 12:25 | disposition home or self-care (01) ==
LOC: FINFUSION 11:01 → FM/S 11:03 → FINFUSION 12:25
PROVIDERS: ATTEND Family Medicine
PROC: 3E033GC Introduction of Other Therapeutic Substance into Peripheral Vein, Percutaneous Approach (ICD-10-PCS; principal; 2021-11-24)
DX: D50.9 Iron deficiency anemia, unspecified (principal)
CPT/HCPCS: 96365; J1439

== ENCOUNTER 2021-12-01 11:22 | Day surgery (SDC) | payer BC ==
[2021-12-01] MEDS ORDERED: FERRIC CARBOXYMALTOSE 750 MG in SODIUM CHLORIDE 250 ML IVPB SCH (12:15)
[2021-12-01 13:07] VITALS: BP 137/79; PULSE 75; RESP 16; TEMP 98.7
== END 2021-12-01 13:18 | disposition home or self-care (01) ==
LOC: FINFUSION 11:22 → FM/S 11:31 → FINFUSION 13:18
PROVIDERS: ATTEND Family Medicine
PROC: 3E033GC Introduction of Other Therapeutic Substance into Peripheral Vein, Percutaneous Approach (ICD-10-PCS; principal; 2021-12-01)
DX: D50.9 Iron deficiency anemia, unspecified (principal)
CPT/HCPCS: 96365; J1439

== ENCOUNTER 2021-12-21 13:31 | Observation (INO) | payer BC ==
[2021-12-21 15:40] LABS: BASO % 1.4 % (0-2.0); HEMATOCRIT 41.2 % (32.4-45.2); HEMOGLOBIN 13.4 GM/dL (10.7-15.3); LYMPH % 20.3 % (8-40); MCHC 32.5 g/dl (32.0-36.0); MEAN CELL VOLUME 83.3 fl (80-96); MEAN PLT VOLUME 8.9 fl (7.5-11.1); MONO % 7.5 % (3.8-10.2); NEUT % 66.8 % (42.8-82.8); PLATELET COUNT 213 10^3/uL (134-434); RBC 4.95 M/mm3 (3.60-5.2); RDW 23.5 % (11.6-15.6); WHITE BLOOD COUNT 6.1 K/mm3 (4.0-10.0)
[2021-12-21 15:48] LABS: INR 1.08 (0.83-1.09); PROTHROMBIN TIME (PATIENT) 12.4 SEC (9.7-13.0)
[2021-12-21 15:50] LABS: ACTIVATED PTT 29.5 SECONDS (25.2-36.5)
[2021-12-21 16:02] LABS: ANISOCYTOSIS 2+; MACROCYTOSIS 0
[2021-12-21 16:08] LABS: CHLORIDE 107 mmol/L (98-107); SODIUM 139 mmol/L (136-145)
[2021-12-21 16:10] LABS: CALCIUM 9.2 mg/dL (8.5-10.1)
[2021-12-21 16:11] LABS: ALBUMIN 3.9 g/dl (3.4-5.0); ANION GAP 5 MMOL/L (8-16); BLOOD UREA NITROGEN 12.5 mg/dL (7-18); CO2 27 mmol/L (21-32); GLUCOSE,RANDOM 91 mg/dL (74-106)
[2021-12-21 16:14] LABS: CREATININE 0.7 mg/dL (0.55-1.3); SGOT/AST 12 U/L (15-37); SGPT/ALT 22 U/L (13-61)
[2021-12-21 16:16] LABS: BILIRUBIN,TOTAL 0.3 mg/dL (0.2-1); TOT PROT 7.3 g/dl (6.4-8.2)
[2021-12-21 16:17] LABS: ALK PHOS 71 U/L (45-117)
[2021-12-21 17:37] LABS: IRON SERUM 49 ug/dL (50-175); TOTAL IRON BINDING CAPACITY 254 ug/dL (250-450)
[2021-12-21] MEDS ORDERED: PANTOPRAZOLE 40 MG TABLET PO ONE (17:41)
[2021-12-21] MEDS: PANTOPRAZOLE 40 MG TABLET PO SCH (17:46)
[2021-12-21] MEDS ORDERED: ACETAMINOPHEN 325 MG TABLET (FP) ONE (18:36)
[2021-12-21] MEDS: ACETAMINOPHEN 325 MG TABLET (FP) PO PRN (18:38)
[2021-12-21 21:28] VITALS: BMI 31.2
[2021-12-21] MEDS ORDERED: MAG HYDROX/AL HYDROX/SIMETH 30 ML UNIT-DOSE CUP PO ONE (21:50)
[2021-12-22] MEDS ORDERED: IRON SUCROSE INJECTION 200 MG in SODIUM CHLORIDE 90 ML IVPB ONE (09:00)
[2021-12-22 09:09] LABS: HEMATOCRIT 41.3 % (32.4-45.2); HEMOGLOBIN 13.2 GM/dL (10.7-15.3); MCH 26.8 pg (25.7-33.7); MCHC 31.9 g/dl (32.0-36.0); MEAN CELL VOLUME 83.8 fl (80-96); MEAN PLT VOLUME 9.3 fl (7.5-11.1); PLATELET COUNT 215 10^3/uL (134-434); RBC 4.93 M/mm3 (3.60-5.2); RDW 23.5 % (11.6-15.6); WHITE BLOOD COUNT 5.7 K/mm3 (4.0-10.0)
[2021-12-22 09:47] LABS: TRIGLYCERIDES 152 mg/dL (0-150)
[2021-12-22 09:48] LABS: LDL CHOLESTEROL (ONLY SJRH) 92 mg/dL (5-100)
[2021-12-22 09:50] LABS: HDL CHOLESTEROL 38 mg/dL (40-60)
[2021-12-22 09:58] LABS: CHOLESTEROL 165 mg/dL (50-200)
[2021-12-22] MEDS: ACETAMINOPHEN 325 MG TABLET (FP) PO PRN ×2 (12:33→18:29)
[2021-12-22] MEDS: PANTOPRAZOLE 40 MG TABLET PO SCH (12:34)
[2021-12-22] MEDS: LOSARTAN 50MG/HCTZ 12.5MG 1 TAB PO SCH (15:23)
[2021-12-23] MEDS: LOSARTAN 50MG/HCTZ 12.5MG 1 TAB PO SCH (09:16)
[2021-12-23] MEDS: PANTOPRAZOLE 40 MG TABLET PO SCH (09:16)
[2021-12-23 09:19] VITALS: RESP 18
[2021-12-23 16:51] VITALS: BP 125/72; PULSE 75; TEMP 98.1
== END 2021-12-23 16:00 | disposition home or self-care (01) ==
LOC: JER 13:31 → JERBED 17:07 → J7W 20:32
PROVIDERS: ADMIT Family Medicine; ATTEND Family Medicine
PROC: 3E033GC Introduction of Other Therapeutic Substance into Peripheral Vein, Percutaneous Approach (ICD-10-PCS; principal; 2021-12-21)
DX: R07.89 Other chest pain (principal); N93.9 Abnormal uterine and vaginal bleeding, unspecified; I10 Essential (primary) hypertension; K58.9 Irritable bowel syndrome, unspecified; K21.9 Gastro-esophageal reflux disease without esophagitis; N92.0 Excessive and frequent menstruation with regular cycle; Z91.048 Other nonmedicinal substance allergy status
CPT/HCPCS: 36415; 71046-TC-FY; 71275-TC; 80053; 80061; 83036; 83540; 83550; 84439; 84443; 84484; 85025; 85027; 85610; 85730; 86850; 86900; 86901; 93005; 93010; 99285-25; C9803-CS; G0378; J1756; Q9967; U0003; U0005

== ENCOUNTER 2021-12-25 05:20 | Day surgery (SDC) | payer BC ==
[2021-12-14 11:31] VITALS: BMI 30.7
[2021-12-25] MEDS ORDERED: LIDOCAINE HCL 2% 100 MG/5 ML DISP.SYRIN ONE (09:31)
[2021-12-25] MEDS ORDERED: PROPOFOL 20 ML ONE (09:32)
[2021-12-25] MEDS ORDERED: MIDAZOLAM HCL 2 MG/2 ML SINGLE DOSE VIAL ONE (09:32)
[2021-12-25] MEDS ORDERED: DEXAMETHASONE SOD PHOSPHATE 4 MG/1 ML VIAL ONE (11:07)
[2021-12-25] MEDS ORDERED: KETOROLAC TROMETHAMINE 30 MG/1 ML VIAL ONE (11:07)
[2021-12-25] MEDS ORDERED: ONDANSETRON 4 MG/2 ML VIAL ONE (11:07)
[2021-12-25] MEDS ORDERED: ceFAZolin SODIUM 1 GM VIAL IVPB ONE ×2 (11:15→11:18)
[2021-12-25] MEDS ORDERED: ONDANSETRON 4 MG/2 ML VIAL IVPUSH PRN ×2 (12:09→12:14)
[2021-12-25] MEDS ORDERED: PROMETHAZINE HCL 25 MG/1 ML VIAL IVPUSH PRN (12:09)
[2021-12-25] MEDS ORDERED: oxyCODONE HCL 5 MG TABLET PO PRN ×3 (12:09→12:14)
[2021-12-25] MEDS ORDERED: ACETAMINOPHEN 325 MG TABLET (FP) PO PRN (12:09)
[2021-12-25] MEDS ORDERED: IBUPROFEN 800 MG/8 ML IJ IVPB PRN (12:14)
[2021-12-25] MEDS ORDERED: IBUPROFEN 600 MG TABLET (FP) PO PRN (12:14)
[2021-12-25] MEDS ORDERED: ELECTROLYTE-148 SOLN 1,000 ML IV SCH (12:15)
[2021-12-25] MEDS ORDERED: LACTATED RINGERS SOLUTION 1,000 ML IV SCH (12:15)
[2021-12-25 13:57] VITALS: RESP 18
[2021-12-25] MEDS ORDERED: ACETAMINOPHEN 325 MG TABLET (FP) ONE (13:58)
[2021-12-25] MEDS ORDERED: oxyCODONE HCL 5 MG TABLET ONE (15:42)
[2021-12-25] MEDS ORDERED: oxyCODONE HCL 5 MG TABLET PO ONE (15:45)
[2021-12-25 16:10] VITALS: PULSE 83
[2021-12-25 17:32] VITALS: BP 129/60; TEMP 98.8
== END 2021-12-25 17:25 | disposition home or self-care (01) ==
LOC: JASU-SURG 05:20
PROVIDERS: ATTEND Obstetrics & Gynecology
PROC: 0UDB7ZX Extraction of Endometrium, Via Natural or Artificial Opening, Diagnostic (ICD-10-PCS; 2021-12-25)
PROC: 0UB98ZX Excision of Uterus, Via Natural or Artificial Opening Endoscopic, Diagnostic (ICD-10-PCS; 2021-12-25)
PROC: 0U5B8ZZ Destruction of Endometrium, Via Natural or Artificial Opening Endoscopic (ICD-10-PCS; principal; 2021-12-25 10:30)
DX: N92.0 Excessive and frequent menstruation with regular cycle (principal); N84.0 Polyp of corpus uteri
CPT/HCPCS: 81025; 88305-TC; 94760

== ENCOUNTER 2022-03-11 18:23 | Emergency (ER) | payer BC ==
[2022-03-11 19:38] VITALS: PULSE 76; BMI 29.9
[2022-03-11 21:35] LABS: URINE APPEARANCE CLEAR; URINE BILIRUBIN NEGATIVE (NEGATIVE); URINE COLOR YELLOW; URINE GLUCOSE (UA) NEGATIVE (NEGATIVE); URINE KETONE TRACE (NEGATIVE); URINE LEUK ESTERASE NEGATIVE (NEGATIVE); URINE NITRITE NEGATIVE (NEGATIVE); URINE PROTEIN NEGATIVE (NEGATIVE); URINE UROBILINOGEN 0.2 mg/dL (0.2-1.0)
[2022-03-11 22:26] LABS: BASO % 0.9 % (0-2.0); EOS % 3.8 % (0-4.5); HEMATOCRIT 46.6 % (32.4-45.2); HEMOGLOBIN 15.3 GM/dL (10.7-15.3); LYMPH % 24.7 % (8-40); MCH 29.2 pg (25.7-33.7); MCHC 32.9 g/dl (32.0-36.0); MEAN CELL VOLUME 88.8 fl (80-96); MEAN PLT VOLUME 9.6 fl (7.5-11.1); MONO % 7.7 % (3.8-10.2); NEUT % 62.9 % (42.8-82.8); PLATELET COUNT 236 10^3/uL (134-434); RBC 5.25 M/mm3 (3.60-5.2); WHITE BLOOD COUNT 9.1 K/mm3 (4.0-10.0)
[2022-03-11 22:56] LABS: BLOOD UREA NITROGEN 18.8 mg/dL (7-18); CALCIUM 9.3 mg/dL (8.5-10.1)
[2022-03-11 22:59] LABS: CREATININE 0.7 mg/dL (0.55-1.3)
[2022-03-11 23:01] LABS: BILIRUBIN,TOTAL 0.5 mg/dL (0.2-1); TOT PROT 7.3 g/dl (6.4-8.2)
[2022-03-11] MEDS ORDERED: ONDANSETRON 4 MG TABLET PO ONE ×2 (23:40→23:42)
[2022-03-12] MEDS ORDERED: ACETAMINOPHEN 500 MG TABLET (FP) PO ONE (01:11)
[2022-03-12] MEDS ORDERED: ACETAMINOPHEN 500 MG TABLET (FP) ONE (01:13)
[2022-03-12 01:20] VITALS: BP 123/75; RESP 16; TEMP 98
== END 2022-03-12 01:50 | disposition home or self-care (01) ==
LOC: JER 18:23
DX: R10.2 Pelvic and perineal pain (principal)
CPT/HCPCS: 36415; 76830-TC; 80053; 81003; 83690; 85025; 87086; 99284-25

== ENCOUNTER 2022-05-09 09:00 | Emergency (ER) | payer BC ==
[2022-05-09 09:09] VITALS: BP 134/68; PULSE 81; RESP 18; TEMP 98.5; BMI 31.1
[2022-05-09] MEDS ORDERED: MAG HYDROX/AL HYDROX/SIMETH -MYLANTA- ORAL SUSPENSION PO ONE (11:53)
[2022-05-09] MEDS ORDERED: MAGNESIUM CITRATE 300 ML BOTTLE PO ONE (11:53)
[2022-05-09] MEDS ORDERED: FAMOTIDINE 10 MG TABLET PO ONE (11:53)
[2022-05-09] MEDS ORDERED: MAG HYDROX/AL HYDROX/SIMETH 30 ML UNIT-DOSE CUP ONE (12:16)
[2022-05-09] MEDS ORDERED: FAMOTIDINE 20 MG TABLET ONE (12:16)
== END 2022-05-09 12:31 | disposition home or self-care (01) ==
LOC: JER 09:00
DX: K59.00 Constipation, unspecified (principal)
CPT/HCPCS: 74019-TC-FY; 99283-25

== ENCOUNTER 2022-09-04 09:24 | Emergency (ER) | payer BC ==
[2022-09-04 09:32] VITALS: BP 134/65; PULSE 84; RESP 16; TEMP 97.6; BMI 30.7
[2022-09-04] MEDS ORDERED: ACETAMINOPHEN 500 MG TABLET (FP) PO ONE (10:37)
[2022-09-04] MEDS ORDERED: ACETAMINOPHEN 500 MG TABLET (FP) ONE (10:40)
[2022-09-04 11:32] LABS: HCG,QUALITATIVE URINE Negative
[2022-09-04 11:33] LABS: EPI CELLS 25 /uL (0-25.1); HYALINE CASTS 0 /uL (0-3.1); URINE APPEARANCE CLEAR; URINE BILIRUBIN 1+ (NEGATIVE); URINE COLOR DK YELLOW; URINE GLUCOSE (UA) NEGATIVE (NEGATIVE); URINE KETONE NEGATIVE (NEGATIVE); URINE LEUK ESTERASE TRACE (NEGATIVE); URINE NITRITE POSITIVE (NEGATIVE); URINE PROTEIN NEGATIVE (NEGATIVE); URINE RBC 24 /uL (0-23.9); URINE WBC 8 /uL (0-25.8)
[2022-09-04 11:38] LABS: EOS % 4.4 % (0-4.5); HEMATOCRIT 43.4 % (32.4-45.2); HEMOGLOBIN 14.8 GM/dL (10.7-15.3); LYMPH % 24.1 % (8-40); MCH 30.1 pg (25.7-33.7); MCHC 34.1 g/dl (32.0-36.0); MEAN CELL VOLUME 88.3 fl (80-96); MONO % 7.2 % (3.8-10.2); NEUT % 63.3 % (42.8-82.8); PLATELET COUNT 231 10^3/uL (134-434); RBC 4.91 M/mm3 (3.60-5.2); RDW 13.1 % (11.6-15.6); WHITE BLOOD COUNT 6.3 K/mm3 (4.0-10.0)
[2022-09-04 11:57] LABS: POTASSIUM 4.4 mmol/L (3.5-5.1)
[2022-09-04 11:59] LABS: ALBUMIN 3.9 g/dl (3.4-5.0); CALCIUM 10.1 mg/dL (8.5-10.1)
[2022-09-04 12:00] LABS: BLOOD UREA NITROGEN 14.5 mg/dL (7-18)
[2022-09-04 12:03] LABS: URINE BACTERIA 345.9 /uL (0-1359)
[2022-09-04 12:03] LABS: CREATININE 0.7 mg/dL (0.55-1.3)
[2022-09-04 12:04] LABS: BILIRUBIN,TOTAL 0.4 mg/dL (0.2-1); TOT PROT 7.5 g/dl (6.4-8.2)
== END 2022-09-04 13:12 | disposition home or self-care (01) ==
LOC: JER 09:24
DX: R10.2 Pelvic and perineal pain (principal); M54.50 Low back pain, unspecified; R35.0 Frequency of micturition; N88.8 Other specified noninflammatory disorders of cervix uteri; N83.202 Unspecified ovarian cyst, left side; N30.00 Acute cystitis without hematuria
CPT/HCPCS: 36415; 76830-TC; 80053; 81003; 84703; 85025; 87086; 99284-25

== ENCOUNTER 2024-04-06 04:23 | Inpatient (IN) | payer BC ==
[2024-04-05 09:58] VITALS: BMI 27.9
[2024-04-06] MEDS ORDERED: SUCCINYLCHOLINE CHLORIDE 200 MG/10 ML SYRINGE ONE (10:37)
[2024-04-06] MEDS ORDERED: MIDAZOLAM HCL 2 MG/2 ML SINGLE DOSE VIAL ONE (10:37)
[2024-04-06] MEDS ORDERED: PROPOFOL 40 ML ONE (10:37)
[2024-04-06] MEDS: ceFAZolin SODIUM 1 GM VIAL IVPB ONE (11:12)
[2024-04-06] MEDS ORDERED: NALOXONE HCL 0.4 MG/ML VIAL IVPUSH PRN (12:42)
[2024-04-06] MEDS ORDERED: ACETAMINOPHEN INJECTION 100 ML ONE (12:53)
[2024-04-06] MEDS: ACETAMINOPHEN 1000 MG/100 ML BAG IVPB PRN (12:57)
[2024-04-06] MEDS: ELECTROLYTE-148 SOLN 1,000 ML IV SCH (13:00)
[2024-04-06 14:42] VITALS: RESP 18
[2024-04-06] MEDS: CEFAZOLIN 2 GM/D5W 2 GM/50 ML ML IVPB SCH (18:05)
[2024-04-06] MEDS: ONDANSETRON 4 MG/2 ML VIAL IVPUSH PRN (19:05)
[2024-04-07 07:59] LABS: HEMATOCRIT 36.4 % (32.4-45.2); HEMOGLOBIN 12.2 GM/dL (10.7-15.3); MCH 29.9 pg (25.7-33.7); MCHC 33.5 g/dl (32.0-36.0); MEAN CELL VOLUME 89.3 fl (80-96); MEAN PLT VOLUME 8.8 fl (7.5-11.1); PLATELET COUNT 195 10^3/uL (134-434); RBC 4.08 M/mm3 (3.60-5.2); RDW 12.8 % (11.6-15.6); WHITE BLOOD COUNT 11.8 K/mm3 (4.0-10.0)
[2024-04-07 08:40] LABS: POTASSIUM 3.7 mmol/L (3.5-5.1)
[2024-04-07 08:42] LABS: CALCIUM 8.4 mg/dL (8.5-10.1)
[2024-04-07 08:43] LABS: ALBUMIN 3.1 g/dl (3.4-5.0); BLOOD UREA NITROGEN 11.1 mg/dL (7-18)
[2024-04-07 08:46] LABS: CREATININE 0.6 mg/dL (0.55-1.3)
[2024-04-07 08:47] LABS: BILIRUBIN,TOTAL 0.8 mg/dL (0.2-1); TOT PROT 5.9 g/dl (6.4-8.2)
[2024-04-07] MEDS: ENOXAPARIN NA (PORCINE) 40 MG/0.4 ML DISP.SYRIN SQ SCH (09:52)
[2024-04-07] MEDS: morphine SULFATE/PF 1 MG/2 ML (2cc Syringe - QUVA) IT ONE (09:54)
[2024-04-07] MEDS: LACTATED RINGERS SOLUTION 1,000 ML IV SCH (09:54)
[2024-04-07] MEDS: oxyCODONE HCL 5 MG TABLET PO PRN (13:26)
[2024-04-07] MEDS: BISACODYL 10 MG SUPP.RECT PR ONE (14:16)
[2024-04-07] MEDS: SIMETHICONE 80 MG TAB.CHEW (FP) PO PRN (17:53)
[2024-04-07 21:50] VITALS: BP 122/81; PULSE 71; TEMP 99.2
[2024-04-08] MEDS: DOCUSATE SODIUM 100 MG CAPSULE (FP) PO PRN (10:05)
== END 2024-04-08 11:30 | disposition home or self-care (01) | DRG 743 ==
LOC: J2C 04:23 → J3W 14:09
PROVIDERS: ADMIT Obstetrics & Gynecology; ATTEND Obstetrics & Gynecology
PROC: 0UT70ZZ Resection of Bilateral Fallopian Tubes, Open Approach (ICD-10-PCS; 2024-04-06)
PROC: 0UT20ZZ Resection of Bilateral Ovaries, Open Approach (ICD-10-PCS; 2024-04-06)
PROC: 0UT90ZZ Resection of Uterus, Open Approach (ICD-10-PCS; principal; 2024-04-06 10:00)
DX: N80.03 Adenomyosis of the uterus (principal); N95.0 Postmenopausal bleeding; R10.2 Pelvic and perineal pain
CPT/HCPCS: 36415; 80053; 85027; 86850; 86900; 86901; 87081; 88305-TC; 94010; 94760; J0131